=== PATIENT | male | born 1960 | race Two or more races ===

== ENCOUNTER → 2017-01-19 | Outpatient (CLI) | payer MEDICARE ==
[2017-01-19 11:51] LABS: ABSOLUTE BASOPHILS # (AUTO) 0.1 10^3/uL (0.0-0.2); ABSOLUTE EOSINOPHILS # (AUTO) 0.6 10^3/uL (0.0-0.6); ABSOLUTE MONOCYTES (AUTO) 0.4 10^3/uL (0.1-1.4); ABSOLUTE NEUT (AUTO) 3.9 10^3/uL (1.7-8.2); BASOPHILS % (AUTO) 1.2 % (0-2); EOSINOPHILS % (AUTO) 10.3 % (0-6); HEMATOCRIT 34.3 % (37.9-51.0); HEMOGLOBIN 11.4 g/dL (13.5-17.0); HGB HCT DIFFERENCE -0.1; LYMPHOCYTES % (AUTO) 16.5 % (13-45); MEAN CORPUSCULAR HGB CONC 33.1 g/dL (32.0-36.0); MEAN CORPUSCULAR VOLUME 87 fl (80-97); MONOCYTES % (AUTO) 7.3 % (3-13); RED BLOOD COUNT 3.93 10^6/uL (4.35-5.55); RED CELL DISTRIBUTION WIDTH 16.2 % (11.5-14.0); SEGMENTED NEUTROPHILS % (AUTO) 64.7 % (42-78); WHITE BLOOD COUNT 6.1 10^3/uL (4.0-10.5)
[2017-01-19 12:03] LABS: ALANINE AMINOTRANSFERASE 24 U/L (21-72); ALBUMIN 4.2 g/dL (3.5-5.0); ALKALINE PHOSPHATASE 111 U/L (38-126); ANION GAP 12 (5-19); ASPARTATE AMINO TRANSFERASE 16 U/L (17-59); BILIRUBIN,DIRECT 0.4 mg/dL (0.0-0.4); BILIRUBIN,TOTAL 0.5 mg/dL (0.2-1.3); BLOOD UREA NITROGEN 56 mg/dL (7-20); C-REACTIVE PROTEIN 25.9 mg/L (<10.0); CALCIUM 9.7 mg/dL (8.4-10.2); CARBON DIOXIDE 25 mmol/L (22-30); CHLORIDE 102 mmol/L (98-107); CREATININE RESULT 1.85 mg/dL (0.52-1.25); GLUCOSE 196 mg/dL (75-110); POTASSIUM 5.7 mmol/L (3.6-5.0); SODIUM 139.1 mmol/L (137-145); TOTAL PROTEIN 7.3 g/dL (6.3-8.2)
[2017-01-19 12:46] LABS: ERYTHROCYTE SEDIMENTATION RATE 72 mm/hr (0-20)
--- NOTE | 2017-01-19 16:54 | RADIOLOGY REPORT (SQ) ---
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 NUMBER OF VIEWS: Three views. TECHNIQUE: AP, lateral and oblique radiographic images acquired of the right foot. LIMITATIONS: None. FINDINGS: MINERALIZATION: Normal. BONES: No acute fracture or dislocation. No aggressive bony demineralization worrisome for osteomyelitis. There is diffuse idiopathic skeletal hyperostosis, with prominent osteophytes at the talonavicular zo int, intertarsal joints, with large bone spurs along the calcaneal and plantar fascia attachment to t he calcaneus, and small osteophytes at the base of the 5th metatarsal. JOINTS: No effusions. SOFT TISSUES: Dorsal foot soft tissue swelling. Ulcer over the dorsum of the left foot near the 1st metatarsophalangeal joint. No foreign body. OTHER: No other significant finding. IMPRESSION: No aggressive bony demineralization worrisome for osteomyelitis. TECHNICAL DOCUMENTATION: JOB ID: [id number] [employer]- All Rights Reserved
== END ==
LOC: OD 10:09
PROVIDERS: ATTEND Nurse Practitioner Family
DX: E11.621 Type 2 diabetes mellitus with foot ulcer (principal); L97.512 Non-pressure chronic ulcer of other part of right foot with fat layer exposed
CPT/HCPCS: 36415; 80053; 83036; 85025; 85652; 86140

== ENCOUNTER → 2017-01-19 | Outpatient (CLI) | payer MEDICARE ==
--- NOTE | 2017-01-19 16:42 | RADIOLOGY REPORT (SQ) ---
EXAM DESCRIPTION: C SP 3 VWS OR LESS COMPLETED DATE/TIME: 01/19/2017 11:39 am REASON FOR STUDY: CENTRAL CORD SYND AT UNSP LEVEL OF CERV SPINAL CORD, INIT S14.129A CENTRAL CORD S YND AT UNSP LEVEL OF CERV SPINAL CORD COMPARISON: None. NUMBER OF VIEWS: Three views. TECHNIQUE: AP, lateral and swimmer's radiographic images acquired of the cervical spine. LIMITATIONS: None. FINDINGS: MINERALIZATION: Normal. ALIGNMENT: Straightening of cervical lordosis VERTEBRAE: Vertebral bodies of normal height. DISCS: Post fusion with disc spacer and anterior plate at C5-6. 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 This indents the posterior aspec t of the hypopharynx. HARDWARE: Fusion hardware at C5-6 SOFT TISSUES: No masses or calcifications. Lung apices clear. OTHER: No other significant finding. IMPRESSION: Prior fusion at C5-6. Bulky anterior osteophytes TECHNICAL DOCUMENTATION: JOB ID: [id number] [employer]- All Rights Reserved
== END ==
LOC: OD 10:57
PROVIDERS: ATTEND Physician Assistant
DX: S14.129A Central cord syndrome at unspecified level of cervical spinal cord, initial encounter (principal); X58.XXXA Exposure to other specified factors, initial encounter
CPT/HCPCS: 72040

== ENCOUNTER → 2017-01-21 | Outpatient (CLI) | payer MEDICARE ==
--- NOTE | 2017-01-22 10:04 | XCELERA REPORT ---
[address] [address] Lower Extremity Arterial Evaluation Name: WILMER ASIF Age: 56 yrs Gender: Male : 1960 Patient Status: Outpatient Patient Location: Study Date: 01/21/2017 11:10 AM Procedure: A color flow and duplex scan of the lower extremity arteries was performed bilaterally with velocity and waveform anaylsis. Ankle brachial indicies performed. Reason For Study: ULCER Ordering Physician: EILEEN CABAN Performed By: Annette Cardenas Measurements and Calculations Right Left DIE MAINTENANCE PSV 132.0 99.9 cm/sec Prox PFA PSV -91.7 -73.0 cm/sec Prox SFA PSV -108.1 99.3 cm/sec Mid SFA PSV -75.1 -102.1 cm/sec Dist SFA PSV -60.4 -84.5 cm/sec Prox Pop A PSV 58.0 74.6 cm/sec Dist JEFFREY PSV 72.6 86.4 cm/sec Dist [employer]GE PSV 58.3 91.8 cm/sec Juan Antonio Pedis PSV 70.2 77.1 cm/sec Right Side Arterial Evaluation Normal velocity and triphasic waveforms noted from the Common Femoral artery to the Anterior Tibial artery. Biphasic in the Posterior Tibial artery and the Dorsalis Pedis. 0-19% stenosis at the Posterior Tibial and Dorsalis Pedis arteries. JOHAN not obtainable due to non compressibility. Left Side Arterial Evaluation Normal velocity and triphasic waveforms noted from the Common Femoral artery to the Infrageniculate vessels 0 % stenosis noted. JOHAN not obtainable due to non compressibility. Interpretation Summary Mild hemodynamically significant lesions in the right lower extremity only, on duplex imaging, at rest. No hemodynamically significant lesions in the left lower extremity only, on duplex imaging, at rest. Non compressible distal vessels suggestive of atherosclerosis. : EILEEN CABAN > Allen Agrawal
== END ==
LOC: SP 10:37
PROVIDERS: ATTEND Nurse Practitioner Family
DX: L97.512 Non-pressure chronic ulcer of other part of right foot with fat layer exposed (principal)
CPT/HCPCS: 93925